=== PATIENT | female | born 1970 | race Caucasian/White ===

== ENCOUNTER 2017-07-15 19:21 | Emergency (ER) | payer SELFPAY ==
[2017-07-15] MEDS ORDERED: Lidocaine 2% Viscous Solution 15 ML Cup PO ONE (19:38)
[2017-07-15] MEDS ORDERED: Benzocaine 20% Topical Spray UD MUCMEM ONE (19:38)
--- NOTE | 2017-07-15 19:38 | EDM.PDOC ---
ED HPI GENERAL MEDICAL PROBLEM - General Stated Complaint: MOUTH/TOOTH PAIN Time Seen by Provider: 07/15/17 19:34 Source of Information: Reports: Patient, Family History Limitations: Reports: No Limitations - History of Present Illness INITIAL COMMENTS - FREE TEXT/NARRATIVE: HISTORY AND PHYSICAL: []46-year-old female presenting with tooth pain History of Present Illness: []Just moved to this area does not have a dentist that this pain for a couple days Review of Systems: As per history of present illness and below otherwise all systems reviewed and negative. Past medical history: As per history of present illness and as reviewed below otherwise noncontributory. Surgical history: As per history of present illness and as reviewed below otherwise noncontributory. Social history: No reported history of drug or alcohol abuse. Family history: As per history of present illness and as reviewed below otherwise noncontributory. Physical exam: Alert and oriented female answering questions appropriately rating her pain as 6 /10. Reports allergy to Cipro. He can full sentences without shortness of breath HEENT: Atraumatic, normocehpalic, pupils reactive, negative for conjunctival pallor or scleral icterus, mucous membranes moist, throat clear, neck supple, nontender, trachea midline. In the front of her mouth that is not tooth above tooth 7 is erythema and edema starting to have white pustular material present. Tooth #7 is milton looking. Lungs: Clear to auscultation, breath sounds equal bilaterally, chest non tender. Heart: S1S2, regular, negative for clicks, rubs, or JVD. Abdomen: Soft, nondistended, nontender. Negative for masses or hepatossplenmegaly. Negative for costovertebral tenderness. Pelvis: Stable nontender. Genitourinary: Deferred. Rectal: Deferred Extremities: Atraumatic, negative for cords or calf pain. Neurovascular unremarkable. Neuro: Awake, alert, oriented. Cranial nerves II through XII unremarkable. Cerebellum unremarkable. Motor and sensory unremarkable throughout. Exam nonfocal. Discussed her dental abscess with her and her voice understanding of her discharge instructions Diagnostics: [] Therapeutics: [Dental balls] Impression: [Dental abscess] Plan: []Discharged to home Cephalexin 500 mg 3 times a day 10 days Follow up with the dentist or resolution of this problem Definitive disposition and diagnosis as appropriate pending reevaluation and review of above. Onset: Gradual Duration: Day(s): (2) Location: Reports: Face Quality: Reports: Stabbing, Throbbing Severity: Moderate Improves with: Reports: None Worsens with: Reports: None - Related Data Allergies Allergy/AdvReac Type Severity Reaction Status Date / Time ciprofloxacin [From Cipro] Allergy Vomiting Verified 07/15/17 19:35 Home Meds: Home Meds Cephalexin 500 mg PO TID #30 capsule 07/15/17 [Rx] ED ROS GENERAL - Review of Systems Review Of Systems: ROS reveals no pertinent complaints other than HPI. ED EXAM, GENERAL - Physical Exam Exam: See Below (See dictation) Course - Vital Signs Last Recorded V/S: Last Vital Signs Temp 36.9 C 07/15/17 19:32 Pulse 105 H 07/15/17 19:32 Resp 19 07/15/17 19:32 BP 156/108 H 07/15/17 19:32 Pulse Ox 95 07/15/17 19:32 - Orders/Labs/Meds Orders: Active Orders 24 hr Category Date Time Status Benzocaine [Hurricaine One 20%] Med 07/15/17 19:38 Once 2 each MUCMEM ONETIME ONE Lidocaine 2% [Xylocaine 2% Viscous] Med 07/15/17 19:38 Once 15 ml PO ONETIME ONE Departure - Departure Time of Disposition: 19:39 Disposition: Home, Self-Care 01 Condition: Good Clinical Impression: Dental abscess - Discharge Information Prescriptions: Cephalexin 500 mg PO TID #30 capsule Referrals: PCP,None [Primary Care Provider] - - My Orders Last 24 Hours: My Active Orders 07/15/17 19:38 Benzocaine [Hurricaine One 20%] 2 each MUCMEM ONETIME ONE Lidocaine 2% [Xylocaine 2% Viscous] 15 ml PO ONETIME ONE - Assessment/Plan Last 24 Hours: My Active Orders 07/15/17 19:38 Benzocaine [Hurricaine One 20%] 2 each MUCMEM ONETIME ONE Lidocaine 2% [Xylocaine 2% Viscous] 15 ml PO ONETIME ONE
== END 2017-07-15 19:52 | disposition home or self-care (01) ==
LOC: MW.ED 19:21
DX: K04.7 Periapical abscess without sinus (principal); Z88.1 Allergy status to other antibiotic agents
CPT/HCPCS: 99282; A9270

== ENCOUNTER 2019-10-03 17:11 | Emergency (ER) | payer SELFPAY ==
[2019-10-03] MEDS ORDERED: Sodium Chloride 0.9% 1,000 ML IV ONE (17:18)
[2019-10-03] MEDS ORDERED: Sodium Chloride 0.9% 10 ML Syringe FLUSH PRN (17:18)
[2019-10-03] MEDS ORDERED: Sodium Chloride 0.9% 2.5 ML Syringe FLUSH PRN (17:18)
--- NOTE | 2019-10-03 17:20 | EDM.PDOC ---
ED HPI GENERAL MEDICAL PROBLEM - General Chief Complaint: Chest Pain Stated Complaint: SOB Time Seen by Provider: 10/03/19 17:19 Source of Information: Reports: Patient History Limitations: Reports: No Limitations - History of Present Illness INITIAL COMMENTS - FREE TEXT/NARRATIVE: HISTORY AND PHYSICAL: History of present illness: Patient is a 48-year-old female presents to the ED With complaint of chest pain and shortness of breath. She states she has been having a heavy feeling in her left arm and burping all day. She reports she started feeling short of breath a few hours and states she thinks it's because she "got herself worked up." She reports chest pain started approximately 1 hours ago and is in the middle and right side of her chest and is worse with deep breaths. She denies fevers, chills, vomiting, diarrhea, abdominal pain, cough, jaw pain. She reports feeling nauseous. Review of systems: As per history of present illness and below otherwise all systems reviewed and negative. Past medical history: As per history of present illness and as reviewed below otherwise noncontributory. Surgical history: As per history of present illness and as reviewed below otherwise noncontributory. Social history: No reported history of drug or alcohol abuse. Family history: As per history of present illness and as reviewed below otherwise noncontributory. Physical exam: General: Patient sitting comfortably in no acute distress and nontoxic appearing HEENT: Atraumatic, normocephalic, pupils reactive, negative for conjunctival pallor or scleral icterus, mucous membranes moist, throat clear, neck supple, nontender, trachea midline. No meningeal signs. Lungs: Clear to auscultation, breath sounds equal bilaterally, chest nontender. Heart: S1S2, regular, negative for clicks, rubs, or overt murmur. Abdomen: Soft, nondistended, nontender. Negative for masses or hepatosplenomegaly. Negative for costovertebral tenderness. No rigidity, rebound , guarding. Pelvis: Stable nontender. Genitourinary: Deferred. Rectal: Deferred. Extremities: Atraumatic, negative for cords or calf pain. Neurovascular unremarkable. Neuro: Awake, alert, oriented. Cranial nerves II through XII unremarkable. Cerebellum unremarkable. Motor and sensory unremarkable throughout. Exam nonfocal. Notes: EKG shows NSR, no STEMI. 1800 - patient reports she no longer has pain in her left arm and pain in her chest has improved. 1899 - patient states her mom recently and she is feeling very anxious and believes her symptoms are due to this. She states she will get flutters in her chest and feel short of breath. Patient is tearful as she is talking to me. 1999 - patient reports feeling significantly better after ativan and denies any symptoms at this time. 2 hour troponin is negative. I offered patient admission for observation and serial troponins which she declined. Diagnostics: CBC, CMP, troponin, EKG, CXR Therapeutics: ASA 324mg chewed 1mg Ativan PO Prescriptions: none Impression: Atypical chest pain, anxiety Plan: Follow up with primary care provider Return to ED as needed as discussed Definitive disposition and diagnosis as appropriate pending reevaluation and review of above. - Related Data Allergies Allergy/AdvReac Type Severity Reaction Status Date / Time adhesive Allergy Blisters Verified 10/03/19 17:16 ciprofloxacin [From Cipro] Allergy Vomiting Verified 10/03/19 17:16 morphine Allergy Vomiting Verified 10/03/19 17:16 Home Meds: Home Meds . [No Known Home Meds] 10/03/19 [History] Past Medical History HEENT History: Reports: None Gastrointestinal History: Reports: None [employer] History: Reports: Musculoskeletal History: Reports: None - Infectious Disease History Infectious Disease History: Reports: Chicken Pox - Past Surgical History HEENT Surgical History: Reports: Adenoidectomy, Tonsillectomy GI Surgical History: Reports: Appendectomy, Cholecystectomy Female Surgical History: Reports: Hysterectomy Musculoskeletal Surgical History: Reports: Other (See Below) Other Musculoskeletal Surgeries/Procedures:: left knee surgery Social & Family History - Family History Family Medical History: Noncontributory - Caffeine Use Caffeine Use: Reports: None ED ROS GENERAL - Review of Systems Review Of Systems: Comprehensive ROS is negative, except as noted in HPI. ED EXAM, GENERAL - Physical Exam Exam: See Below (see dictation) Course - Vital Signs Last Recorded V/S: Last Vital Signs Temp 95.5 F L 10/03/19 17:16 Pulse 97 10/03/19 17:16 Resp 17 10/03/19 17:16 BP 181/90 H 10/03/19 17:16 Pulse Ox 97 10/03/19 17:16 - Orders/Labs/Meds Orders: Active Orders 24 hr Category Date Time Status Cardiac Monitoring [RC] . DIRECTED Care 10/03/19 17:18 Active EKG Documentation Completion [RC] STAT Care 10/03/19 17:18 Active Sodium Chloride 0.9% [Saline Flush] Med 10/03/19 17:18 Active 10 ml FLUSH ASDIRECTED PRN Sodium Chloride 0.9% [Saline Flush] Med 10/03/19 17:18 Active 2.5 ml FLUSH ASDIRECTED PRN Saline Lock Insert [OM.PC] Stat Oth 10/03/19 17:18 Ordered Medication Orders Sodium Chloride (Saline Flush) 10 ml FLUSH ASDIRECTED PRN PRN Reason: Keep Vein Open Sodium Chloride (Saline Flush) 2.5 ml FLUSH ASDIRECTED PRN PRN Reason: Keep Vein Open Labs: Laboratory Tests 10/03/19 10/03/19 10/03/19 Range/Units 17:22 17:22 17:22 WBC 11.44 H (4.0-11.0) K/uL RBC 4.92 (4.30-5.90) M/uL Hgb 14.1 (12.0-16.0) g/dL Hct 42.7 (36.0-46.0) % MCV 86.8 (80.0-98.0) fL MCH 28.7 (27.0-32.0) pg MCHC 33.0 (31.0-37.0) g/dL RDW Std Deviation 42.1 (28.0-62.0) fl RDW Coeff of [place] 13 (11.0-15.0) % Plt Count 287 (150-400) K/uL MPV 9.90 (7.40-12.00) fL Neut % (Auto) 61.3 (48.0-80.0) % Lymph % (Auto) 28.7 (16.0-40.0) % [place] % (Auto) 8.2 (0.0-15.0) % Eos % (Auto) 1.6 (0.0-7.0) % Baso % (Auto) 0.2 (0.0-1.5) % Neut # (Auto) 7.0 H (1.4-5.7) K/uL Lymph # (Auto) 3.3 H (0.6-2.4) K/uL [place] # (Auto) 0.9 H (0.0-0.8) K/uL Eos # (Auto) 0.2 (0.0-0.7) K/uL Baso # (Auto) 0.0 (0.0-0.1) K/uL Nucleated RBC % 0.0 /100WBC Nucleated RBCs # 0 K/uL INR 0.94 Sodium 140 (136-145) mmol/L Potassium 3.8 (3.5-5.1) mmol/L Chloride 102 (98-107) mmol/L Carbon Dioxide 26.8 (21.0-32.0) mmol/L BUN 13 (7.0-18.0) mg/dL Creatinine 0.9 (0.6-1.0) mg/dL Est Cr Clr Drug Dosing 61.77 mL/min Estimated GFR (MDRD) > 60.0 ml/min Glucose 119 H (74-106) mg/dL Calcium 9.8 (8.5-10.1) mg/dL Total Bilirubin 0.3 (0.2-1.0) mg/dL AST 23 (15-37) IU/L ALT 51 (14-63) IU/L Alkaline Phosphatase 81 (46-116) U/L Troponin I < 0.050 (0.000-0.056) ng/mL Total Protein 7.1 (6.4-8.2) g/dL Albumin 4.1 (3.4-5.0) g/dL Globulin 3.0 (2.6-4.0) g/dL Albumin/Globulin Ratio 1.4 (0.9-1.6) 10/03/19 Range/Units 19:21 WBC (4.0-11.0) K/uL RBC (4.30-5.90) M/uL Hgb (12.0-16.0) g/dL Hct (36.0-46.0) % MCV (80.0-98.0) fL MCH (27.0-32.0) pg MCHC (31.0-37.0) g/dL RDW Std Deviation (28.0-62.0) fl RDW Coeff of [place] (11.0-15.0) % Plt Count (150-400) K/uL MPV (7.40-12.00) fL Neut % (Auto) (48.0-80.0) % Lymph % (Auto) (16.0-40.0) % [place] % (Auto) (0.0-15.0) % Eos % (Auto) (0.0-7.0) % Baso % (Auto) (0.0-1.5) % Neut # (Auto) (1.4-5.7) K/uL Lymph # (Auto) (0.6-2.4) K/uL [place] # (Auto) (0.0-0.8) K/uL Eos # (Auto) (0.0-0.7) K/uL Baso # (Auto) (0.0-0.1) K/uL Nucleated RBC % /100WBC Nucleated RBCs # K/uL INR Sodium (136-145) mmol/L Potassium (3.5-5.1) mmol/L Chloride (98-107) mmol/L Carbon Dioxide (21.0-32.0) mmol/L BUN (7.0-18.0) mg/dL Creatinine (0.6-1.0) mg/dL Est Cr Clr Drug Dosing mL/min Estimated GFR (MDRD) ml/min Glucose (74-106) mg/dL Calcium (8.5-10.1) mg/dL Total Bilirubin (0.2-1.0) mg/dL AST (15-37) IU/L ALT (14-63) IU/L Alkaline Phosphatase (46-116) U/L Troponin I < 0.050 (0.000-0.056) ng/mL Total Protein (6.4-8.2) g/dL Albumin (3.4-5.0) g/dL Globulin (2.6-4.0) g/dL Albumin/Globulin Ratio (0.9-1.6) Meds: Medications Generic Name Dose Route Start Last Admin Trade Name Freq PRN Reason Stop Dose Admin Sodium Chloride 10 ml 10/03/19 17:18 Saline Flush FLUSH ASDIRECTED PRN Keep Vein Open Sodium Chloride 2.5 ml 10/03/19 17:18 Saline Flush FLUSH ASDIRECTED PRN Keep Vein Open Discontinued Medications Generic Name Dose Route Start Last Admin Trade Name Freq PRN Reason Stop Dose Admin Aspirin 324 mg 10/03/19 17:27 10/03/19 17:42 Aspirin PO 10/03/19 17:28 324 mg ONETIME ONE Administration Sodium Chloride 1,000 mls @ 999 mls/hr 10/03/19 17:18 10/03/19 17:26 Normal Saline IV 10/03/19 18:18 999 mls/hr BOLUS ONE Administration Lorazepam 1 mg 10/03/19 18:53 10/03/19 19:00 Ativan IVPUSH 10/03/19 18:54 1 mg ONETIME ONE Administration Departure - Departure Time of Disposition: 19:58 Disposition: Home, Self-Care 01 Condition: Good Clinical Impression: Atypical chest pain, Anxiety Referrals: PCP,None [Primary Care Provider] - Forms: ED Department Discharge Additional Instructions: The following information is given to patients seen in the emergency department who are being discharged to home. This information is to outline your options for follow-up care. We provide all patients seen in our emergency department with a follow-up referral. The need for follow-up, as well as the timing and circumstances, are variable depending upon the specifics of your emergency department visit. If you don't have a primary care physician on staff, we will provide you with a referral. We always advise you to contact your personal physician following an emergency department visit to inform them of the circumstance of the visit and for follow-up with them and/or the need for any referrals to a consulting specialist. The emergency department will also refer you to a specialist when appropriate. This referral assures that you have the opportunity for follow-up care with a specialist. All of these measure are taken in an effort to provide you with optimal care, which includes your follow-up. Under all circumstances we always encourage you to contact your private physician who remains a resource for coordinating your care. When calling for follow-up care, please make the office aware that this follow-up is from your recent emergency room visit. If for any reason you are refused follow-up, please contact the [facility] Emergency Department at and asked to speak to the emergency department charge nurse. [facility] Primary [facility] [address] [place] [id number] [facility] [address] [place] [address] Follow up with primary care provider Return to ED as needed as discussed Sepsis Event Note - Evaluation Sepsis Screening Result: No Definite Risk - Focused Exam Vital Signs: Vital Signs Temp Pulse Resp BP Pulse Ox 10/03/19 17:16 95.5 F L 97 17 181/90 H 97 Date Exam was Performed: 10/03/19 Time Exam was Performed: 19:56 - My Orders Last 24 Hours: My Active Orders 10/03/19 17:18 Cardiac Monitoring [RC] . DIRECTED EKG Documentation Completion [RC] STAT Sodium Chloride 0.9% [Saline Flush] 10 ml FLUSH ASDIRECTED PRN Sodium Chloride 0.9% [Saline Flush] 2.5 ml FLUSH ASDIRECTED PRN Saline Lock Insert [OM.PC] Stat - Assessment/Plan Last 24 Hours: My Active Orders 10/03/19 17:18 Cardiac Monitoring [RC] . DIRECTED EKG Documentation Completion [RC] STAT Sodium Chloride 0.9% [Saline Flush] 10 ml FLUSH ASDIRECTED PRN Sodium Chloride 0.9% [Saline Flush] 2.5 ml FLUSH ASDIRECTED PRN Saline Lock Insert [OM.PC] Stat
[2019-10-03] MEDS ORDERED: Aspirin 81 MG Tab.Chew PO ONE (17:27)
--- NOTE | 2019-10-03 17:57 | CR ---
Chest: Portable view of the chest was obtained. Comparison: No prior chest imaging is available. Heart size and mediastinum are within normal limits. Lungs are clear with no acute parenchymal change. Old healed bilateral rib fractures are noted. Slight scoliosis is noted within the spine. Impression: 1. Nothing acute is appreciated on portable chest x-ray. Diagnostic code #2 This report was dictated in MDT
[2019-10-03 17:58] LABS: BLOOD UREA NITROGEN,BUN 13 mg/dL (7.0-18.0); CARBON DIOXIDE,CO2 26.8 mmol/L (21.0-32.0); CHLORIDE,CL 102 mmol/L (98-107); GLUCOSE RANDOM 119 mg/dL (74-106); POTASSIUM,K 3.8 mmol/L (3.5-5.1); SODIUM,NA 140 mmol/L (136-145)
[2019-10-03] MEDS ORDERED: LORazepam 2 MG/ML SDV IVPUSH ONE (18:53)
== END 2019-10-03 20:04 | disposition home or self-care (01) ==
LOC: MW.ED 17:11
DX: F41.9 Anxiety disorder, unspecified (principal); Z88.5 Allergy status to narcotic agent; Z88.1 Allergy status to other antibiotic agents; Z91.048 Other nonmedicinal substance allergy status
CPT/HCPCS: 36415; 71045; 80053; 84484; 85025; 85610; 93005; 96374; 99285; A9270; J2060; J7030; 99283

== ENCOUNTER 2020-03-20 09:17 | Observation (INO) | payer SELFPAY ==
--- NOTE | 2020-03-20 10:04 | EDM.PDOC ---
ED HPI GENERAL MEDICAL PROBLEM - General Chief Complaint: Respiratory Problem Stated Complaint: SOB COUGHING Time Seen by Provider: 03/20/20 09:22 Source of Information: Reports: Patient History Limitations: Reports: No Limitations - History of Present Illness INITIAL COMMENTS - FREE TEXT/NARRATIVE: HISTORY AND PHYSICAL: History of present illness: Patient is a 49-year-old female who presents to the emergency room with complaints of shortness of breath, chest pain and cough x24 hours. She states she has had general fatigue, body aches, nausea, vomiting and diarrhea over the past 3 to 4 days. She reports multiple family members recently tested positive for COVID-19 and she is "pretty sure I have it as well". She states the reason she came in today as she had increased shortness of breath and generalized chest pain. The chest pain and shortness of breath are mild and constant. Patient denies any fever, chills, headache, change in vision, syncope or near syncope. Denies any neck stiffness/pain, back pain, abdominal pain, constipation or dysuria. Has not noted any blood in urine or stool. Denies any chance of , hysterectomy. Review of systems: As per history of present illness and below otherwise all systems reviewed and negative. Past medical history: As per history of present illness and as reviewed below otherwise noncontributory. Surgical history: As per history of present illness and as reviewed below otherwise noncontributory. Social history: See social history for further information Family history: As per history of present illness and as reviewed below otherwise noncontributory. Physical exam: General: Well developed and well nourished 49-year-old female. Alert and orientated x 3. Nontoxic in appearance and in no acute distress. Vital signs are stable and have been reviewed by me. Nursing notes were reviewed. HEENT: Atraumatic, normocephalic, pupils equal and reactive bilaterally, negative for conjunctival pallor or scleral icterus, mucous membranes dry/tacky, TMs normal bilaterally, throat clear, neck supple, nontender, trachea midline. No drooling or trismus noted. No meningeal signs. No hot potato voice noted. Lungs: Diminished to auscultation, breath sounds equal bilaterally, chest nontender. Normal work of breathing, no accessory muscles used. Heart: S1S2, regular rate and rhythm without overt murmur Abdomen: Soft, nondistended, nontender. Negative for masses or hepatosplenomegaly. Negative for costovertebral tenderness. Skin: Intact, warm, dry. No lesions or rashes noted. Hematologic: No petechiae or purpra. Mucosa appropriate color and normal nail bed color and refill. Extremities: Atraumatic, moves all extremities per self without difficulty or deficits, negative for cords or calf pain. Neurovascular unremarkable. Neuro: Awake, alert, oriented. Cranial nerves II through XII unremarkable. Cerebellum unremarkable. Motor and sensory unremarkable throughout. Exam nonfocal. Psychiatric: Mood and affect are appropriate. Normal thought process. Answering questions appropriately. Notes: Patient does appear clinically dehydrated her mouth is tacky/dry. We will give her a liter of fluids. Lab work is unremarkable with the exception that her D- dimer is elevated, will get a CTA of her chest to rule out PE. Chest x-ray was unremarkable. Positive COVID-19 screening. Her vital signs remained stable she should be appropriate for discharge if her CTA is within normal limits. CT of the chest shows no findings of pulmonary embolism. There is moderate multifocal groundglass opacification. The findings are consistent with COVID related pneumonia. No pleural effusion or pneumothorax. Prominent mediastinal lymph nodes likely reactive. Hepatic steatosis. I have talked with the patient about today's findings, in addition to providing specific details for plan of care. Patient states she does not want to be discharged home as she is taking care of her and other family members who also have COVID-19, states cannot think I would do well at home. She then becomes tearful stating her mother recently of COVID-19 and she does not feel comfortable without having supervision from a healthcare provider. Her oxygen saturation has been fluctuating between 92% 94% on room air. I do feel it is appropriate to keep her for observation. I spoke with Dr Peters, who is agr eeable to keeping her for further care and management. Diagnostics: CBC, CMP, Troponin, EKG, CXR, Coronavirus Therapeutics: IV fluids, Dexamethasone, Rocephin, Azithromycin Impression: COVID-19 related pneumonia Plan: Observation admission to Med/Surg with telemetry Definitive disposition and diagnosis as appropriate pending reevaluation and review of above. 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: Musculoskeletal History: Reports: None - Infectious Disease History Infectious Disease History: Reports: Chicken Pox - Past Surgical History HEENT Surgical History: Reports: Adenoidectomy, Tonsillectomy GI Surgical History: Reports: Appendectomy, Cholecystectomy Female Surgical History: Reports: Hysterectomy Musculoskeletal Surgical History: Reports: Other (See Below) Other Musculoskeletal Surgeries/Procedures:: left knee surgery Social & Family History - Family History Family Medical History: No Pertinent Family History - Caffeine Use Caffeine Use: Reports: None ED ROS GENERAL - Review of Systems Review Of Systems: Comprehensive ROS is negative, except as noted in HPI. ED EXAM, GENERAL - Physical Exam Exam: See Below (See dictation) Course - Vital Signs Last Recorded V/S: Last Vital Signs Temp 97.6 F 03/20/20 09:35 Pulse 95 03/20/20 11:00 Resp 18 03/20/20 11:00 BP 116/63 03/20/20 11:00 Pulse Ox 96 03/20/20 11:00 - Orders/Labs/Meds Orders: Active Orders 24 hr Category Date Time Status Admission Status [Patient Status] [ADT] Stat ADT 03/20/20 13:40 Ordered EKG Documentation Completion [RC] STAT Care 03/20/20 10:09 Active CORONAVIRUS COVID-19 PCR PHL Stat Lab 03/20/20 10:45 Received cefTRIAXone [Rocephin in Dextrose,Iso-Osm 1 GM/50 ML] 1 Med 03/20/20 13:42 Ordered gm Premix Bag 1 bag IV ONETIME Medication Orders Ceftriaxone Sodium/Dextrose 1 (gm/ Premix) 50 mls @ 100 mls/hr IV ONETIME ONE Stop: 03/20/20 14:11 Labs: Laboratory Tests 03/20/20 03/20/20 03/20/20 Range/Units 10:45 10:45 10:45 WBC 5.32 (4.0-11.0) K/uL RBC 5.03 (4.30-5.90) M/uL Hgb 14.7 (12.0-16.0) g/dL Hct 43.6 (36.0-46.0) % MCV 86.7 (80.0-98.0) fL MCH 29.2 (27.0-32.0) pg MCHC 33.7 (31.0-37.0) g/dL RDW Std Deviation 43.0 (28.0-62.0) fl RDW Coeff of Eugene 14 (11.0-15.0) % Plt Count 162 (150-400) K/uL MPV 10.50 (7.40-12.00) fL Neut % (Auto) 64.5 (48.0-80.0) % Lymph % (Auto) 22.0 (16.0-40.0) % Brooks % (Auto) 13.3 (0.0-15.0) % Eos % (Auto) 0.0 (0.0-7.0) % Baso % (Auto) 0.2 (0.0-1.5) % Neut # (Auto) 3.4 (1.4-5.7) K/uL Lymph # (Auto) 1.2 (0.6-2.4) K/uL Brooks # (Auto) 0.7 (0.0-0.8) K/uL Eos # (Auto) 0.0 (0.0-0.7) K/uL Baso # (Auto) 0.0 (0.0-0.1) K/uL Nucleated RBC % 0.0 /100WBC Nucleated RBCs # 0 K/uL D-Dimer, Quantitative 0.62 H (0.0-0.50) mg/L FEU Sodium 133 L (136-145) mmol/L Potassium 3.4 L (3.5-5.1) mmol/L Chloride 98 (98-107) mmol/L Carbon Dioxide 24.8 (21.0-32.0) mmol/L BUN 9 (7.0-18.0) mg/dL Creatinine 0.8 (0.6-1.0) mg/dL Est Cr Clr Drug Dosing 68.76 mL/min Estimated GFR (MDRD) > 60.0 ml/min Glucose 109 H (74-106) mg/dL Calcium 8.5 (8.5-10.1) mg/dL Total Bilirubin 0.4 (0.2-1.0) mg/dL AST 34 (15-37) IU/L ALT 39 (14-63) IU/L Alkaline Phosphatase 64 (46-116) U/L Troponin I < 0.050 (0.000-0.056) ng/mL Total Protein 7.5 (6.4-8.2) g/dL Albumin 3.8 (3.4-5.0) g/dL Globulin 3.7 (2.6-4.0) g/dL Albumin/Globulin Ratio 1.0 (0.9-1.6) SARS CoV-2 RNA Rapid RICHARD (NEGATIVE) 03/20/20 Range/Units 10:45 WBC (4.0-11.0) K/uL RBC (4.30-5.90) M/uL Hgb (12.0-16.0) g/dL Hct (36.0-46.0) % MCV (80.0-98.0) fL MCH (27.0-32.0) pg MCHC (31.0-37.0) g/dL RDW Std Deviation (28.0-62.0) fl RDW Coeff of Eugene (11.0-15.0) % Plt Count (150-400) K/uL MPV (7.40-12.00) fL Neut % (Auto) (48.0-80.0) % Lymph % (Auto) (16.0-40.0) % Brooks % (Auto) (0.0-15.0) % Eos % (Auto) (0.0-7.0) % Baso % (Auto) (0.0-1.5) % Neut # (Auto) (1.4-5.7) K/uL Lymph # (Auto) (0.6-2.4) K/uL Brooks # (Auto) (0.0-0.8) K/uL Eos # (Auto) (0.0-0.7) K/uL Baso # (Auto) (0.0-0.1) K/uL Nucleated RBC % /100WBC Nucleated RBCs # K/uL D-Dimer, Quantitative (0.0-0.50) mg/L FEU Sodium (136-145) mmol/L Potassium (3.5-5.1) mmol/L Chloride (98-107) mmol/L Carbon Dioxide (21.0-32.0) mmol/L BUN (7.0-18.0) mg/dL Creatinine (0.6-1.0) mg/dL Est Cr Clr Drug Dosing mL/min Estimated GFR (MDRD) ml/min Glucose (74-106) mg/dL Calcium (8.5-10.1) mg/dL Total Bilirubin (0.2-1.0) mg/dL AST (15-37) IU/L ALT (14-63) IU/L Alkaline Phosphatase (46-116) U/L Troponin I (0.000-0.056) ng/mL Total Protein (6.4-8.2) g/dL Albumin (3.4-5.0) g/dL Globulin (2.6-4.0) g/dL Albumin/Globulin Ratio (0.9-1.6) SARS CoV-2 RNA Rapid RICHARD POSITIVE H (NEGATIVE) Meds: Medications Generic Name Dose Route Start Last Admin Trade Name Freq PRN Reason Stop Dose Admin Ceftriaxone Sodium/Dextrose 1 50 mls @ 100 mls/hr 03/20/20 13:42 gm/ Premix IV 03/20/20 14:11 ONETIME ONE Discontinued Medications Generic Name Dose Route Start Last Admin Trade Name Freq PRN Reason Stop Dose Admin Azithromycin 500 mg 03/20/20 13:42 Zithromax PO 03/20/20 13:43 NOW STA Dexamethasone 8 mg 03/20/20 10:09 03/20/20 10:37 Dexamethasone PO 03/20/20 10:10 8 mg ONETIME ONE Administration Sodium Chloride 1,000 mls @ 999 mls/hr 03/20/20 10:09 03/20/20 10:47 Normal Saline IV 03/20/20 11:09 999 mls/hr .Bolus ONE Administration Iopamidol 100 ml 03/20/20 13:17 03/20/20 13:17 Isovue Multipack-370 (76%) IVPUSH 03/20/20 13:18 100 ml ONETIME ONE Administration Departure - Departure Time of Disposition: 13:58 Disposition: Refer to Observation Clinical Impression: Pneumonia due to COVID-19 virus - Discharge Information Referrals: Shi Vigil, CAFE ATTENDANT [Primary Care Provider] - Forms: ED Department Discharge Sepsis Event Note (ED) - Focused Exam Vital Signs: Vital Signs Temp Pulse Resp BP Pulse Ox 03/20/20 11:00 95 18 116/63 96 03/20/20 09:35 97.6 F 108 H 20 120/89 94 L - My Orders Last 24 Hours: My Active Orders 03/20/20 10:09 EKG Documentation Completion [RC] STAT 03/20/20 10:45 CORONAVIRUS COVID-19 PCR PHL Stat 03/20/20 13:40 Admission Status [Patient Status] [ADT] Stat 03/20/20 13:42 cefTRIAXone [Rocephin in Dextrose,Iso-Osm 1 GM/50 ML] 1 gm Premix Bag 1 bag IV ONETIME - Assessment/Plan Last 24 Hours: My Active Orders 03/20/20 10:09 EKG Documentation Completion [RC] STAT 03/20/20 10:45 CORONAVIRUS COVID-19 PCR PHL Stat 03/20/20 13:40 Admission Status [Patient Status] [ADT] Stat 03/20/20 13:42 cefTRIAXone [Rocephin in Dextrose,Iso-Osm 1 GM/50 ML] 1 gm Premix Bag 1 bag IV ONETIME
[2020-03-20] MEDS ORDERED: Sodium Chloride 0.9% 1,000 ML IV ONE (10:09)
[2020-03-20] MEDS ORDERED: Dexamethasone 4 MG Tab PO ONE (10:09)
--- NOTE | 2020-03-20 10:38 | CR ---
INDICATION: Chest pain and dyspnea COMPARISON: October 03, 2019 TECHNIQUE: PA and lateral views of the chest were acquired FINDINGS: TUBES AND LINES: None. HEART AND MEDIASTINUM: The heart size is normal. The mediastinal contour appears normal for patient age. LUNGS AND PLEURAL SPACES: The lungs appear normal.The pleural spaces are unremarkable. OSSEOUS STRUCTURES: Nonacute left rib fractures IMPRESSION: No evidence of active pulmonary disease. Dictated by Terry Barreto MD @ Mar 20 2020 10:36AM Signed by Dr. Terry Barreto @ Mar 20 2020 10:36AM
--- NOTE | 2020-03-20 10:43 | PCM.SN.2 ---
- Free Text/Narrative Note: 12-Lead ECG Interpretation Acquired: 10:28 AM Rhythm: Sinus tachycardia Rate: 115 bpm Parker: Normal Intervals: Mildly prolonged QT interval at 487 ms Ectopy: None RV Strain: No obvious RV strain pattern. ST Segments/T-Waves: No notable changes. Isolated Q-wave in lead III. Mild nondiagnostic ST depression in leads V2 and III, possibly rate related. Interpretation: No STEMI
[2020-03-20 11:23] LABS: BLOOD UREA NITROGEN,BUN 9 mg/dL (7.0-18.0); CARBON DIOXIDE,CO2 24.8 mmol/L (21.0-32.0); CHLORIDE,CL 98 mmol/L (98-107); GLUCOSE RANDOM 109 mg/dL (74-106); POTASSIUM,K 3.4 mmol/L (3.5-5.1); SODIUM,NA 133 mmol/L (136-145)
[2020-03-20] MEDS ORDERED: Albuterol/Ipratropium 4 GM Inhalation Spray INH PRN (12:00)
[2020-03-20] MEDS ORDERED: Iopamidol 755 MG/ML 500 ML Multipack Bottle IVPUSH ONE (13:17)
--- NOTE | 2020-03-20 13:30 | CT ---
INDICATION: COVID 19 pneumonia with elevated D-dimer and dyspnea. Exclude pulmonary embolus COMPARISON: None TECHNIQUE: : CT examination of the chest was performed with the uneventful intravenous administration of 100 cc of Isovue 370 while thin axial sections were obtained from above the apices of the lungs to the lung bases. Please note that all CT scans at this facility use dose modulation, iterative reconstruction, and/or weight-based dosing when appropriate to reduce radiation dose to as low as reasonably achievable. FINDINGS: : HEART and MEDIASTINUM: The heart size is normal. Prominent mediastinal lymph nodes likely reactive. No significant pericardial fluid PULMONARY ARTERIAL CIRCULATION: There is no visible intraluminal filling defect to suggest pulmonary embolus. LUNGS: Multifocal ground-glass opacification in a roughly bilateral and symmetric distribution, moderate. The findings are likely related to COVID pneumonia. PLEURAL SPACES: There is no pleural effusion, pneumothorax or pleural based mass. VISUALIZED UPPER ABDOMEN: Hepatic steatosis. Otherwise, the limited visualized upper abdominal structures appear normal. OSSEOUS STRUCTURES: Demineralization, degenerative changes and kyphosis. TUBES and LINES: None. IMPRESSION: 1. There is no finding of pulmonary embolus. 2. Moderate multifocal ground-glass opacification. The findings are consistent with COVID related pneumonia. No pleural effusion or pneumothorax. 3. Prominent mediastinal lymph nodes likely reactive. 4. Hepatic steatosis. Please note that all CT scans at this facility use dose modulation, iterative reconstruction, and/or weight-based dosing when appropriate to reduce radiation dose to as low as reasonably achievable. Dictated by Terry Barreto MD @ Mar 20 2020 1:22PM Signed by Dr. Terry Barreto @ Mar 20 2020 1:29PM
[2020-03-20] MEDS ORDERED: cefTRIAXone 1 GM in Premix Bag 1 BAG IV ONE (13:42)
[2020-03-20] MEDS ORDERED: Azithromycin 250 MG Tab PO STA (13:42)
[2020-03-20] MEDS ORDERED: Ketorolac 30 MG/ML SDV IVPUSH ONE (14:09)
[2020-03-20] MEDS ORDERED: Ketorolac 30 MG/ML SDV ONE (14:10)
--- NOTE | 2020-03-20 14:30 | PCM.HP.2 ---
H&P History of Present Illness - General Date of Service: 03/20/20 Admit Problem/Dx: Admission Diagnosis/Problem Admission Diagnosis/Problem Pneumonia Source of Information: Patient History Limitations: Reports: No Limitations - History of Present Illness Initial Comments - Free Text/Narative: 49-year-old female presents with SOB, chest pain, cough and fever for the past 5 days. She has a PMH of DM type II, depression and anxiety. Patient reports having multiple family members test positive for COVID-19 recently. Her cough is mostly dry but productive at times. She has also had headache, body aches, chills and diarrhea. She smokes 1 pack of cigarettes over 3 days, occasional alcohol use and denies any illicit drugs. Patient reports her mother recently from COVID-19. In the ER, CBC unremarkable, potassium level 3.4 and troponin was negative. CXR was unremarkable. COVID-19 test positive. D-dimer was elevated. CT chest angio was negative for PE but showed bilateral ground glass opacities. Patient was given 1 L IV NS bolus, IV Rocephin, azithromycin, dexamethasone and Toradol. Patient oxygen saturation noted to be between 92-95% on room air. Patient admitted for further evaluation and treatment. 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: Musculoskeletal History: Reports: None - Infectious Disease History Infectious Disease History: Reports: Chicken Pox - Past Surgical History HEENT Surgical History: Reports: Adenoidectomy, Tonsillectomy GI Surgical History: Reports: Appendectomy, Cholecystectomy Female Surgical History: Reports: Hysterectomy Musculoskeletal Surgical History: Reports: Other (See Below) Other Musculoskeletal Surgeries/Procedures:: left knee surgery Social & Family History - Family History Family Medical History: No Pertinent Family History - Caffeine Use Caffeine Use: Reports: None H&P Review of Systems - Review of Systems: Review Of Systems: Comprehensive ROS is negative, except as noted in HPI. Exam - Exam Exam: See Below - Vital Signs Vital Signs: Last Vital Signs Temp 36.4 C 03/20/20 09:35 Pulse 84 03/20/20 14:15 Resp 18 03/20/20 14:15 BP 129/67 03/20/20 14:15 Pulse Ox 93 L 03/20/20 14:15 Weight: 83.915 kg - Exam General: Alert, Oriented, Cooperative, Mild Distress HEENT: Conjunctiva Clear, EOMI, Hearing Intact, Pupils Equal, Pupils Reactive Neck: Supple, Trachea Midline Lungs: Normal Respiratory Effort, Other (rales in bases b/l) Cardiovascular: Regular Rate, Regular Rhythm GI/Abdominal Exam: Normal Bowel Sounds, Soft, Non-Tender, No Distention Extremities: Normal Inspection, No Pedal Edema Peripheral Pulses: 2+: Radial (L), Radial (R) Skin: Warm, Dry, Intact Neurological: Cranial Nerves Intact, Strength Equal Bilateral, Normal Speech, Normal Tone Neuro Extensive - Mental Status: Alert, Oriented x3, Normal Mood/Affect Psychiatric: Alert, Normal Affect, Normal Mood - Patient Data Lab Results Last 24 hrs: Laboratory Results - last 24 hr 03/20/20 03/20/20 03/20/20 Range/Units 10:45 10:45 10:45 WBC 5.32 (4.0-11.0) K/uL RBC 5.03 (4.30-5.90) M/uL Hgb 14.7 (12.0-16.0) g/dL Hct 43.6 (36.0-46.0) % MCV 86.7 (80.0-98.0) fL MCH 29.2 (27.0-32.0) pg MCHC 33.7 (31.0-37.0) g/dL RDW Std Deviation 43.0 (28.0-62.0) fl RDW Coeff of Eugene 14 (11.0-15.0) % Plt Count 162 (150-400) K/uL MPV 10.50 (7.40-12.00) fL Neut % (Auto) 64.5 (48.0-80.0) % Lymph % (Auto) 22.0 (16.0-40.0) % Gonzales % (Auto) 13.3 (0.0-15.0) % Eos % (Auto) 0.0 (0.0-7.0) % Baso % (Auto) 0.2 (0.0-1.5) % Neut # (Auto) 3.4 (1.4-5.7) K/uL Lymph # (Auto) 1.2 (0.6-2.4) K/uL Gonzales # (Auto) 0.7 (0.0-0.8) K/uL Eos # (Auto) 0.0 (0.0-0.7) K/uL Baso # (Auto) 0.0 (0.0-0.1) K/uL Nucleated RBC % 0.0 /100WBC Nucleated RBCs # 0 K/uL D-Dimer, Quantitative 0.62 H (0.0-0.50) mg/L FEU Sodium 133 L (136-145) mmol/L Potassium 3.4 L (3.5-5.1) mmol/L Chloride 98 (98-107) mmol/L Carbon Dioxide 24.8 (21.0-32.0) mmol/L BUN 9 (7.0-18.0) mg/dL Creatinine 0.8 (0.6-1.0) mg/dL Est Cr Clr Drug Dosing 68.76 mL/min Estimated GFR (MDRD) > 60.0 ml/min Glucose 109 H (74-106) mg/dL Calcium 8.5 (8.5-10.1) mg/dL Total Bilirubin 0.4 (0.2-1.0) mg/dL AST 34 (15-37) IU/L ALT 39 (14-63) IU/L Alkaline Phosphatase 64 (46-116) U/L Troponin I < 0.050 (0.000-0.056) ng/mL Total Protein 7.5 (6.4-8.2) g/dL Albumin 3.8 (3.4-5.0) g/dL Globulin 3.7 (2.6-4.0) g/dL Albumin/Globulin Ratio 1.0 (0.9-1.6) SARS CoV-2 RNA Rapid RICHARD (NEGATIVE) 03/20/20 Range/Units 10:45 WBC (4.0-11.0) K/uL RBC (4.30-5.90) M/uL Hgb (12.0-16.0) g/dL Hct (36.0-46.0) % MCV (80.0-98.0) fL MCH (27.0-32.0) pg MCHC (31.0-37.0) g/dL RDW Std Deviation (28.0-62.0) fl RDW Coeff of Eugene (11.0-15.0) % Plt Count (150-400) K/uL MPV (7.40-12.00) fL Neut % (Auto) (48.0-80.0) % Lymph % (Auto) (16.0-40.0) % Gonzales % (Auto) (0.0-15.0) % Eos % (Auto) (0.0-7.0) % Baso % (Auto) (0.0-1.5) % Neut # (Auto) (1.4-5.7) K/uL Lymph # (Auto) (0.6-2.4) K/uL Gonzales # (Auto) (0.0-0.8) K/uL Eos # (Auto) (0.0-0.7) K/uL Baso # (Auto) (0.0-0.1) K/uL Nucleated RBC % /100WBC Nucleated RBCs # K/uL D-Dimer, Quantitative (0.0-0.50) mg/L FEU Sodium (136-145) mmol/L Potassium (3.5-5.1) mmol/L Chloride (98-107) mmol/L Carbon Dioxide (21.0-32.0) mmol/L BUN (7.0-18.0) mg/dL Creatinine (0.6-1.0) mg/dL Est Cr Clr Drug Dosing mL/min Estimated GFR (MDRD) ml/min Glucose (74-106) mg/dL Calcium (8.5-10.1) mg/dL Total Bilirubin (0.2-1.0) mg/dL AST (15-37) IU/L ALT (14-63) IU/L Alkaline Phosphatase (46-116) U/L Troponin I (0.000-0.056) ng/mL Total Protein (6.4-8.2) g/dL Albumin (3.4-5.0) g/dL Globulin (2.6-4.0) g/dL Albumin/Globulin Ratio (0.9-1.6) SARS CoV-2 RNA Rapid RICHARD POSITIVE H (NEGATIVE) Result Diagrams: 03/20/20 10:45 03/20/20 10:45 Sepsis Event Note - Evaluation Sepsis Screening Result: No Definite Risk - Focused Exam Vital Signs: Vital Signs Temp Pulse Resp BP Pulse Ox 03/20/20 14:15 84 18 129/67 93 L 03/20/20 11:00 95 18 116/63 96 03/20/20 09:35 36.4 C 108 H 20 120/89 94 L - Problem List (1) Pneumonia due to COVID-19 virus SNOMED Code(s): 298782731873132931 ICD Code: U07.1 - COVID-19; J12.89 - OTHER VIRAL PNEUMONIA Status: Acute Current Visit: Yes (2) Hypokalemia SNOMED Code(s): 42607114 ICD Code: E87.6 - HYPOKALEMIA Status: Acute Current Visit: Yes (3) Diabetes mellitus SNOMED Code(s): 71099793 ICD Code: E11.9 - TYPE 2 DIABETES MELLITUS WITHOUT COMPLICATIONS Status: Acute Current Visit: Yes (4) Depression SNOMED Code(s): 09357368 ICD Code: F32.9 - MAJOR DEPRESSIVE DISORDER, SINGLE EPISODE, UNSPECIFIED Status: Acute Current Visit: Yes (5) Anxiety SNOMED Code(s): 56847858 ICD Code: F41.9 - ANXIETY DISORDER, UNSPECIFIED Status: Acute Current Visit: No Problem List Initiated/Reviewed/Updated: Yes Orders Last 24hrs: Active Orders 24 hr Category Date Time Status Admission Status [Patient Status] [ADT] Stat ADT 03/20/20 13:40 Active EKG Documentation Completion [RC] STAT Care 03/20/20 10:09 Active CORONAVIRUS COVID-19 PCR PHL Stat Lab 03/20/20 10:45 Received Assessment/Plan Comment:: Assessment and Plan: 1. COVID-19 pneumonia: - Admit to med/surg. Patient on telemetry. Supplemental oxygen PRN to maintain O2 sat > 94%, combivent q6h PRN, Rocephin and azithromycin. Encourage incentive spirometer use. Will start patient on Remdesivir and dexamethasone if O2 sat drops below 94%. - CT chest angio: negative for PE, bilateral ground-glass opacities. - CXR: unremarkable. 2. Hypokalemia, mild: - Will replete with PO KCl 40 mEq x 1. 3. Diabetes mellitus type II: - ADA Diet. Novolog SSI. Accuchecks TIDAC. 4. DVT prophylaxis: - Lovenox 40 mg subcut qd. 5. Past medical history of anxiety and depression: - Resume home medications.
[2020-03-20] MEDS ORDERED: Ondansetron 4 MG/2 ML SDV IVPUSH PRN (14:40)
[2020-03-20] MEDS ORDERED: 50% Dextrose in Water 50 ML Syringe IV PRN (14:44)
[2020-03-20] MEDS ORDERED: Glucagon,Human Recombinant 1 MG Vial IM PRN (14:44)
[2020-03-20] MEDS ORDERED: Potassium Chloride 20 MEQ Tab.ER PO ONE (14:44)
[2020-03-20] MEDS ORDERED: Enoxaparin 40 MG/0.4 ML Syringe SUBCUT SCH (14:45)
[2020-03-20] MEDS ORDERED: REMDESIVIR 200 MG in Sodium Chloride 0.9% 250 ML IV ONE ×2 (15:17→17:20)
[2020-03-20] MEDS ORDERED: Potassium Chloride 20 MEQ Tab.ER ONE (17:24)
[2020-03-20] MEDS ORDERED: FLU VACC QS2020-21(6MOS UP)/PF 60 MCG/0.5 ML SYRINGE IM ONE (17:30)
[2020-03-20] MEDS: Pantoprazole 40 MG Tab.CR PO SCH (17:31)
[2020-03-20] MEDS: Insulin Aspart 100 Units/ML 3 ML Pen SUBCUT SCH (17:37)
[2020-03-20] MEDS: Benzonatate 100 MG Cap PO PRN (18:22)
[2020-03-20] MEDS: Acetaminophen 325 MG Tab PO PRN (21:57)
[2020-03-21] MEDS: Benzonatate 100 MG Cap PO PRN (03:45)
[2020-03-21 06:47] LABS: BLOOD UREA NITROGEN,BUN 12 mg/dL (7.0-18.0); CARBON DIOXIDE,CO2 24.9 mmol/L (21.0-32.0); CHLORIDE,CL 102 mmol/L (98-107); GLUCOSE RANDOM 159 mg/dL (74-106); POTASSIUM,K 4.4 mmol/L (3.5-5.1); SODIUM,NA 136 mmol/L (136-145)
[2020-03-21] MEDS: Acetaminophen 325 MG Tab PO PRN (06:53)
[2020-03-21] MEDS: Insulin Aspart 100 Units/ML 3 ML Pen SUBCUT SCH ×2 (07:55→12:11)
[2020-03-21] MEDS: Pantoprazole 40 MG Tab.CR PO SCH (08:00)
[2020-03-21] MEDS ORDERED: Dexamethasone 4 MG Tab PO SCH (09:00)
[2020-03-21] MEDS ORDERED: Desvenlafaxine Succinate [Pristiq] 50 MG PO SCH (09:00)
--- NOTE | 2020-03-21 09:31 | PCM.PN ---
- General Info Date of Service: 03/21/20 Subjective Update: Reports shortness of breath and cough. Also complains of burning on urination. Tolerating oral diet and having bowel movements. - Patient Data Vitals - Most Recent: Last Vital Signs Temp 36.3 C 03/21/20 07:20 Pulse 69 03/21/20 07:20 Resp 20 03/21/20 07:20 BP 108/74 03/21/20 07:20 Pulse Ox 94 L 03/21/20 07:20 Weight - Most Recent: 84.4 kg I&O - Last 24 Hours: Intake & Output 03/20/20 03/21/20 03/21/20 22:59 06:59 14:59 Intake Total 850 Output Total 850 Balance 0 Lab Results Last 24 Hours: Laboratory Results - last 24 hr 03/20/20 03/20/20 03/20/20 Range/Units 10:45 10:45 10:45 WBC 5.32 (4.0-11.0) K/uL RBC 5.03 (4.30-5.90) M/uL Hgb 14.7 (12.0-16.0) g/dL Hct 43.6 (36.0-46.0) % MCV 86.7 (80.0-98.0) fL MCH 29.2 (27.0-32.0) pg MCHC 33.7 (31.0-37.0) g/dL RDW Std Deviation 43.0 (28.0-62.0) fl RDW Coeff of [place] 14 (11.0-15.0) % Plt Count 162 (150-400) K/uL MPV 10.50 (7.40-12.00) fL Neut % (Auto) 64.5 (48.0-80.0) % Lymph % (Auto) 22.0 (16.0-40.0) % Andrews % (Auto) 13.3 (0.0-15.0) % Eos % (Auto) 0.0 (0.0-7.0) % Baso % (Auto) 0.2 (0.0-1.5) % Neut # (Auto) 3.4 (1.4-5.7) K/uL Lymph # (Auto) 1.2 (0.6-2.4) K/uL Andrews # (Auto) 0.7 (0.0-0.8) K/uL Eos # (Auto) 0.0 (0.0-0.7) K/uL Baso # (Auto) 0.0 (0.0-0.1) K/uL Nucleated RBC % 0.0 /100WBC Nucleated RBCs # 0 K/uL D-Dimer, Quantitative 0.62 H (0.0-0.50) mg/L FEU Sodium 133 L (136-145) mmol/L Potassium 3.4 L (3.5-5.1) mmol/L Chloride 98 (98-107) mmol/L Carbon Dioxide 24.8 (21.0-32.0) mmol/L BUN 9 (7.0-18.0) mg/dL Creatinine 0.8 (0.6-1.0) mg/dL Est Cr Clr Drug Dosing 68.76 mL/min Estimated GFR (MDRD) > 60.0 ml/min Glucose 109 H (74-106) mg/dL POC Glucose (60-110) mg/dL Calcium 8.5 (8.5-10.1) mg/dL Phosphorus (2.6-4.7) mg/dL Magnesium (1.8-2.4) mg/dL Total Bilirubin 0.4 (0.2-1.0) mg/dL AST 34 (15-37) IU/L ALT 39 (14-63) IU/L Alkaline Phosphatase 64 (46-116) U/L Troponin I < 0.050 (0.000-0.056) ng/mL Total Protein 7.5 (6.4-8.2) g/dL Albumin 3.8 (3.4-5.0) g/dL Globulin 3.7 (2.6-4.0) g/dL Albumin/Globulin Ratio 1.0 (0.9-1.6) Urine Color Urine Appearance Urine pH (5.0-8.0) Ur Specific [place] (1.001-1.035) Urine Protein (NEGATIVE) mg/dL Urine Glucose (UA) (NEGATIVE) mg/dL Urine Ketones (NEGATIVE) mg/dL Urine Occult Blood (NEGATIVE) Urine Nitrite (NEGATIVE) Urine Bilirubin (NEGATIVE) Urine Urobilinogen (<2.0) EU/dL Ur Leukocyte Esterase (NEGATIVE) SARS CoV-2 RNA Rapid RICHARD (NEGATIVE) 03/20/20 03/20/20 03/20/20 Range/Units 10:45 10:45 17:35 WBC (4.0-11.0) K/uL RBC (4.30-5.90) M/uL Hgb (12.0-16.0) g/dL Hct (36.0-46.0) % MCV (80.0-98.0) fL MCH (27.0-32.0) pg MCHC (31.0-37.0) g/dL RDW Std Deviation (28.0-62.0) fl RDW Coeff of [place] (11.0-15.0) % Plt Count (150-400) K/uL MPV (7.40-12.00) fL Neut % (Auto) (48.0-80.0) % Lymph % (Auto) (16.0-40.0) % Andrews % (Auto) (0.0-15.0) % Eos % (Auto) (0.0-7.0) % Baso % (Auto) (0.0-1.5) % Neut # (Auto) (1.4-5.7) K/uL Lymph # (Auto) (0.6-2.4) K/uL Andrews # (Auto) (0.0-0.8) K/uL Eos # (Auto) (0.0-0.7) K/uL Baso # (Auto) (0.0-0.1) K/uL Nucleated RBC % /100WBC Nucleated RBCs # K/uL D-Dimer, Quantitative (0.0-0.50) mg/L FEU Sodium (136-145) mmol/L Potassium (3.5-5.1) mmol/L Chloride (98-107) mmol/L Carbon Dioxide (21.0-32.0) mmol/L BUN (7.0-18.0) mg/dL Creatinine (0.6-1.0) mg/dL Est Cr Clr Drug Dosing mL/min Estimated GFR (MDRD) ml/min Glucose (74-106) mg/dL POC Glucose 159 H (60-110) mg/dL Calcium (8.5-10.1) mg/dL Phosphorus 3.1 (2.6-4.7) mg/dL Magnesium 2.3 (1.8-2.4) mg/dL Total Bilirubin (0.2-1.0) mg/dL AST (15-37) IU/L ALT (14-63) IU/L Alkaline Phosphatase (46-116) U/L Troponin I (0.000-0.056) ng/mL Total Protein (6.4-8.2) g/dL Albumin (3.4-5.0) g/dL Globulin (2.6-4.0) g/dL Albumin/Globulin Ratio (0.9-1.6) Urine Color Urine Appearance Urine pH (5.0-8.0) Ur Specific [place] (1.001-1.035) Urine Protein (NEGATIVE) mg/dL Urine Glucose (UA) (NEGATIVE) mg/dL Urine Ketones (NEGATIVE) mg/dL Urine Occult Blood (NEGATIVE) Urine Nitrite (NEGATIVE) Urine Bilirubin (NEGATIVE) Urine Urobilinogen (<2.0) EU/dL Ur Leukocyte Esterase (NEGATIVE) SARS CoV-2 RNA Rapid RICHARD POSITIVE H (NEGATIVE) 03/21/20 03/21/20 03/21/20 Range/Units 06:03 06:03 06:52 WBC 3.12 L (4.0-11.0) K/uL RBC 4.77 (4.30-5.90) M/uL Hgb 13.7 (12.0-16.0) g/dL Hct 41.1 (36.0-46.0) % MCV 86.2 (80.0-98.0) fL MCH 28.7 (27.0-32.0) pg MCHC 33.3 (31.0-37.0) g/dL RDW Std Deviation 42.6 (28.0-62.0) fl RDW Coeff of [place] 13 (11.0-15.0) % Plt Count 166 (150-400) K/uL MPV 10.20 (7.40-12.00) fL Neut % (Auto) 51.9 (48.0-80.0) % Lymph % (Auto) 33.7 (16.0-40.0) % Andrews % (Auto) 14.1 (0.0-15.0) % Eos % (Auto) 0.0 (0.0-7.0) % Baso % (Auto) 0.3 (0.0-1.5) % Neut # (Auto) 1.6 (1.4-5.7) K/uL Lymph # (Auto) 1.1 (0.6-2.4) K/uL Andrews # (Auto) 0.4 (0.0-0.8) K/uL Eos # (Auto) 0.0 (0.0-0.7) K/uL Baso # (Auto) 0.0 (0.0-0.1) K/uL Nucleated RBC % 0.0 /100WBC Nucleated RBCs # 0 K/uL D-Dimer, Quantitative (0.0-0.50) mg/L FEU Sodium 136 (136-145) mmol/L Potassium 4.4 (3.5-5.1) mmol/L Chloride 102 (98-107) mmol/L Carbon Dioxide 24.9 (21.0-32.0) mmol/L BUN 12 (7.0-18.0) mg/dL Creatinine 0.7 (0.6-1.0) mg/dL Est Cr Clr Drug Dosing 78.58 mL/min Estimated GFR (MDRD) > 60.0 ml/min Glucose 159 H (74-106) mg/dL POC Glucose 159 H (60-110) mg/dL Calcium 8.5 (8.5-10.1) mg/dL Phosphorus (2.6-4.7) mg/dL Magnesium (1.8-2.4) mg/dL Total Bilirubin 0.3 (0.2-1.0) mg/dL AST 21 (15-37) IU/L ALT 39 (14-63) IU/L Alkaline Phosphatase 59 (46-116) U/L Troponin I (0.000-0.056) ng/mL Total Protein 7.2 (6.4-8.2) g/dL Albumin 3.5 (3.4-5.0) g/dL Globulin 3.7 (2.6-4.0) g/dL Albumin/Globulin Ratio 0.9 (0.9-1.6) Urine Color Urine Appearance Urine pH (5.0-8.0) Ur Specific [place] (1.001-1.035) Urine Protein (NEGATIVE) mg/dL Urine Glucose (UA) (NEGATIVE) mg/dL Urine Ketones (NEGATIVE) mg/dL Urine Occult Blood (NEGATIVE) Urine Nitrite (NEGATIVE) Urine Bilirubin (NEGATIVE) Urine Urobilinogen (<2.0) EU/dL Ur Leukocyte Esterase (NEGATIVE) SARS CoV-2 RNA Rapid RICHARD (NEGATIVE) 03/21/20 Range/Units 08:35 WBC (4.0-11.0) K/uL RBC (4.30-5.90) M/uL Hgb (12.0-16.0) g/dL Hct (36.0-46.0) % MCV (80.0-98.0) fL MCH (27.0-32.0) pg MCHC (31.0-37.0) g/dL RDW Std Deviation (28.0-62.0) fl RDW Coeff of [place] (11.0-15.0) % Plt Count (150-400) K/uL MPV (7.40-12.00) fL Neut % (Auto) (48.0-80.0) % Lymph % (Auto) (16.0-40.0) % Andrews % (Auto) (0.0-15.0) % Eos % (Auto) (0.0-7.0) % Baso % (Auto) (0.0-1.5) % Neut # (Auto) (1.4-5.7) K/uL Lymph # (Auto) (0.6-2.4) K/uL Andrews # (Auto) (0.0-0.8) K/uL Eos # (Auto) (0.0-0.7) K/uL Baso # (Auto) (0.0-0.1) K/uL Nucleated RBC % /100WBC Nucleated RBCs # K/uL D-Dimer, Quantitative (0.0-0.50) mg/L FEU Sodium (136-145) mmol/L Potassium (3.5-5.1) mmol/L Chloride (98-107) mmol/L Carbon Dioxide (21.0-32.0) mmol/L BUN (7.0-18.0) mg/dL Creatinine (0.6-1.0) mg/dL Est Cr Clr Drug Dosing mL/min Estimated GFR (MDRD) ml/min Glucose (74-106) mg/dL POC Glucose (60-110) mg/dL Calcium (8.5-10.1) mg/dL Phosphorus (2.6-4.7) mg/dL Magnesium (1.8-2.4) mg/dL Total Bilirubin (0.2-1.0) mg/dL AST (15-37) IU/L ALT (14-63) IU/L Alkaline Phosphatase (46-116) U/L Troponin I (0.000-0.056) ng/mL Total Protein (6.4-8.2) g/dL Albumin (3.4-5.0) g/dL Globulin (2.6-4.0) g/dL Albumin/Globulin Ratio (0.9-1.6) Urine Color YELLOW Urine Appearance CLEAR Urine pH 6.0 (5.0-8.0) Ur Specific [place] 1.020 (1.001-1.035) Urine Protein NEGATIVE (NEGATIVE) mg/dL Urine Glucose (UA) NEGATIVE (NEGATIVE) mg/dL Urine Ketones 40 H (NEGATIVE) mg/dL Urine Occult Blood NEGATIVE (NEGATIVE) Urine Nitrite NEGATIVE (NEGATIVE) Urine Bilirubin NEGATIVE (NEGATIVE) Urine Urobilinogen 0.2 (<2.0) EU/dL Ur Leukocyte Esterase NEGATIVE (NEGATIVE) SARS CoV-2 RNA Rapid RICHARD (NEGATIVE) Med Orders - Current: Current Medications Acetaminophen (Tylenol) 650 mg PO Q4H PRN PRN Reason: Pain (Mild 1-3)/fever Last Admin: 03/21/20 06:53 Dose: 650 mg Documented by: Albuterol/Ipratropium (Combivent Respimat) 0 gm INH Q6H PRN PRN Reason: Dyspnea Last Admin: 03/21/20 09:16 Dose: 1 puff Documented by: Azithromycin (Zithromax) 500 mg PO Q24H [facility] Benzonatate (Tessalon Perles) 100 mg PO TID PRN PRN Reason: Cough Last Admin: 03/21/20 03:45 Dose: 100 mg Documented by: Dextrose/Water (Dextrose 50% In Water) 50 ml IV ASDIRECTED PRN PRN Reason: Hypoglycemia Enoxaparin Sodium (Lovenox) 40 mg SUBCUT Q24H KURT Last Admin: 03/20/20 17:30 Dose: 40 mg Documented by: Glucagon (Glucagen) 1 mg IM ASDIRECTED PRN PRN Reason: Hypoglycemia Ceftriaxone Sodium/Dextrose 1 (gm/ Premix) 50 mls @ 100 mls/hr IV Q24H [facility] Insulin Aspart (Novolog) 0 unit SUBCUT TIDAC [facility]; Protocol Last Admin: 03/21/20 07:55 Dose: 1 unit Documented by: Ondansetron HCl (Zofran) 4 mg IVPUSH Q4H PRN PRN Reason: Nausea Pantoprazole Sodium (Protonix) 40 mg PO DAILY [facility] Last Admin: 03/21/20 08:00 Dose: 40 mg Documented by: Desvenlafaxine Succinate [Pristiq] 50 Mg 1 each PO DAILY [facility] Discontinued Medications Azithromycin (Zithromax) 500 mg PO NOW STA Stop: 03/20/20 13:43 Last Admin: 03/20/20 14:14 Dose: 500 mg Documented by: Dexamethasone (Dexamethasone) 8 mg PO ONETIME ONE Stop: 03/20/20 10:10 Last Admin: 03/20/20 10:37 Dose: 8 mg Documented by: Dexamethasone (Dexamethasone) 6 mg PO DAILY [facility] Sodium Chloride (Normal Saline) 1,000 mls @ 999 mls/hr IV .Bolus ONE Stop: 03/20/20 11:09 Last Admin: 03/20/20 10:47 Dose: 999 mls/hr Documented by: Ceftriaxone Sodium/Dextrose 1 (gm/ Premix) 50 mls @ 100 mls/hr IV ONETIME ONE Stop: 03/20/20 14:11 Last Admin: 03/20/20 14:14 Dose: 100 mls/hr Documented by: Remdesivir 100 mg/ Sodium (Chloride) 100 mls @ 100 mls/hr IV Q24H [facility] Stop: 03/24/20 17:59 Remdesivir 200 mg/ Sodium (Chloride) 250 mls @ 250 mls/hr IV ONETIME ONE Stop: 03/20/20 18:19 Last Admin: 03/20/20 17:56 Dose: Not Given Documented by: Influenza Virus Vaccine (Fluzone Quad [id number] Syringe) 60 mcg IM .ONCE ONE Stop: 03/20/20 17:31 Iopamidol (Isovue Multipack-370 (76%)) 100 ml IVPUSH ONETIME ONE Stop: 03/20/20 13:18 Last Admin: 03/20/20 13:17 Dose: 100 ml Documented by: Ketorolac Tromethamine (Toradol) 30 mg IVPUSH ONETIME ONE Stop: 03/20/20 14:10 Last Admin: 03/20/20 14:16 Dose: 30 mg Documented by: Ketorolac Tromethamine (Toradol) Confirm Administered Dose 30 mg .ROUTE .STK-MED ONE Stop: 03/20/20 14:11 Last Admin: 03/20/20 14:19 Dose: Not Given Documented by: Potassium Chloride (Klor-Con M20) 40 meq PO ONETIME ONE Stop: 03/20/20 14:45 Last Admin: 03/20/20 17:30 Dose: 40 meq Documented by: Potassium Chloride (Klor-Con M20) Confirm Administered Dose 40 meq .ROUTE .STK- MED ONE Stop: 03/20/20 17:25 Last Admin: 03/20/20 17:55 Dose: Not Given Documented by: - Exam General: Alert, Oriented, Cooperative, No Acute Distress Lungs: Clear to Auscultation, Normal Respiratory Effort Cardiovascular: Regular Rate, Regular Rhythm GI/Abdominal Exam: Normal Bowel Sounds, Soft, Non-Tender, No Distention Extremities: Normal Inspection, No Pedal Edema Sepsis Event Note - Evaluation Sepsis Screening Result: No Definite Risk - Focused Exam Vital Signs: Vital Signs Temp Pulse Resp BP Pulse Ox 03/21/20 07:20 36.3 C 69 20 108/74 94 L 03/21/20 03:47 35.7 C L 59 L 18 116/72 95 03/21/20 00:09 36.1 C 60 17 102/63 94 L 03/20/20 21:56 62 18 95 - Problem List & Annotations (1) Pneumonia due to COVID-19 virus SNOMED Code(s): 607002054553221350 Code(s): U07.1 - COVID-19; J12.89 - OTHER VIRAL PNEUMONIA Status: Acute Current Visit: Yes (2) Hypokalemia SNOMED Code(s): 89172285 Code(s): E87.6 - HYPOKALEMIA Status: Acute Current Visit: Yes (3) Diabetes mellitus SNOMED Code(s): 26404670 Code(s): E11.9 - TYPE 2 DIABETES MELLITUS WITHOUT COMPLICATIONS Status: Acute Current Visit: Yes (4) Depression SNOMED Code(s): 16972346 Code(s): F32.9 - MAJOR DEPRESSIVE DISORDER, SINGLE EPISODE, UNSPECIFIED Status: Acute Current Visit: Yes (5) Anxiety SNOMED Code(s): 41147714 Code(s): F41.9 - ANXIETY DISORDER, UNSPECIFIED Status: Acute Current Visit: No - Problem List Review Problem List Initiated/Reviewed/Updated: Yes - My Orders Last 24 Hours: My Active Orders 03/20/20 Lunch [employer] Diet [DIET] 03/20/20 12:00 Albuterol/Ipratropium [Combivent Respimat] See Dose Instructions INH Q6H PRN 03/20/20 14:40 Oxygen Therapy [RC] PRN Up ad Landy [RC] ASDIRECTED VTE/DVT Education [RC] PER UNIT ROUTINE Vital Signs [RC] Q4H Acetaminophen [TylenoL] 650 mg PO Q4H PRN Ondansetron [Zofran] 4 mg IVPUSH Q4H PRN Resuscitation Status Routine 03/20/20 14:42 RT Incentive Spirometry [RC] ASDIRECTED RT Post Treatment Assessment [RC] Click to Edit RT Pre-Treatment Assessment [RC] Click to Edit 03/20/20 14:44 Blood Glucose Check, Bedside [RC] TIDAC Dextrose 50% in Water 50 ml IV ASDIRECTED PRN Glucagon,Human Recombinant [GlucaGen] 1 mg IM ASDIRECTED PRN 03/20/20 14:45 Enoxaparin [Lovenox] 40 mg SUBCUT Q24H Pantoprazole [ProTONIX] 40 mg PO DAILY 03/20/20 14:48 Benzonatate [Tessalon Perles] 100 mg PO TID PRN 03/20/20 14:51 Telemetry Monitoring [Cardiac Monitoring] [RC] . DIRECTED 03/20/20 17:00 Insulin Aspart [NovoLOG] See Protocol SUBCUT TIDAC 03/21/20 09:00 Patient's Own Medication [Ptom] 1 each PO DAILY 03/21/20 17:00 Azithromycin [Zithromax] 500 mg PO Q24H cefTRIAXone [Rocephin in Dextrose,Iso-Osm 1 GM/50 ML] 1 gm Premix Bag 1 bag IV Q24H - Plan Plan:: Assessment and Plan: 1. COVID-19 pneumonia: - Supplemental oxygen PRN to maintain O2 sat > 94%, combivent q6h PRN, Rocephin and azithromycin. Continue to encourage incentive spirometer use. Will consider starting Remdesivir and dexamethasone if O2 sat drops below 94%. - CT chest angio: negative for PE, bilateral ground-glass opacities. - CXR: unremarkable. 2. Hypokalemia, resolved. 3. Diabetes mellitus type II: - ADA Diet. Novolog SSI. Accuchecks TIDAC. 4. DVT prophylaxis: - Lovenox 40 mg subcut qd. 5. Past medical history of anxiety and depression: - Resume home medications.
--- NOTE | 2020-03-21 11:33 | PCM.DCSUM1 ---
<Héctor Catalan - Last Filed: 03/21/20 11:48> Discharge Summary - Hospital Course Free Text/Narrative:: 49-year-old female admitted for COVID-19 pneumonia. She has a PMH of DM type II, anxiety and depression. CXR was unremarkable. CT chest angio was negative for PE but showed bilateral ground glass opacities. Troponin was negative. Patient was started on Combivent, Rocephin and azithromycin. As her oxygen saturation remained > 94%, she was not started on Remdesivir or dexamethasone. Patient remained with normal oxygen saturation overnight and felt well enough to go home the following day. She was discharged in stable condition with scripts for Combivent prn, Tessalon pearles, cefdinir and azithromycin. Advised to get home pulse oximeter to monitor her oxygen levels at home and return to hospital if < 92%. Advised to continue self-quarantine. - Discharge Data Discharge Date: 03/21/20 Discharge Disposition: Home, Self-Care 01 Condition: Stable - Referral to Home Health Primary Care Physician: Shi Vigil NP - Discharge Diagnosis/Problem(s) (1) Pneumonia due to COVID-19 virus SNOMED Code(s): 379755895418091628 ICD Code: U07.1 - COVID-19; J12.89 - OTHER VIRAL PNEUMONIA Status: Acute (2) Hypokalemia SNOMED Code(s): 84774205 ICD Code: E87.6 - HYPOKALEMIA Status: Acute (3) Diabetes mellitus SNOMED Code(s): 07038136 ICD Code: E11.9 - TYPE 2 DIABETES MELLITUS WITHOUT COMPLICATIONS Status: Acute (4) Depression SNOMED Code(s): 49933794 ICD Code: F32.9 - MAJOR DEPRESSIVE DISORDER, SINGLE EPISODE, UNSPECIFIED Status: Acute (5) Anxiety SNOMED Code(s): 16847320 ICD Code: F41.9 - ANXIETY DISORDER, UNSPECIFIED Status: Acute - Patient Instructions Diet: Diabetic Diet Activity: As Tolerated Notify Provider of: Fever, Increased Pain, Swelling and Redness, Drainage, Nausea and/or Vomiting Other/Special Instructions: worsening shortness of breath or chest pain - Discharge Plan *PRESCRIPTION DRUG MONITORING PROGRAM REVIEWED*: Not Applicable *COPY OF PRESCRIPTION DRUG MONITORING REPORT IN PATIENT JOSE: Not Applicable Prescriptions/Med Rec: Cefdinir 300 mg PO BID 4 Days #8 capsule Albuterol/Ipratropium [Combivent Respimat] 4 gm IH Q6HR PRN #1 inhaler PRN Reason: Dyspnea Benzonatate [Tessalon Perle] 100 mg PO BID PRN 4 Days #8 capsule PRN Reason: Cough Azithromycin [Zithromax] 500 mg PO Q24H 4 Days #4 tablet Home Medications: Home Meds Desvenlafaxine Succinate [Pristiq] 50 mg PO DAILY 03/20/20 [History] metFORMIN [Glucophage] 1,000 mg PO DAILY 03/20/20 [History] Albuterol/Ipratropium [Combivent Respimat] 4 gm IH Q6HR PRN #1 inhaler 03/21/20 [Rx] Azithromycin [Zithromax] 500 mg PO Q24H 4 Days #4 tablet 03/21/20 [Rx] Benzonatate [Tessalon Perle] 100 mg PO BID PRN 4 Days #8 capsule 03/21/20 [Rx] Cefdinir 300 mg PO BID 4 Days #8 capsule 03/21/20 [Rx] Oxygen Therapy Mode: Room Air Patient Handouts: Albuterol; Ipratropium respiratory inhalation spray (Combivent Respimat), COVID-19, Cefdinir capsules, Azithromycin tablets, Infection Prevention in the Home, Benzonatate capsules, Community-Acquired Pneumonia, Adult, [id number] Referrals: Shi Vigil, [employer] DIRECTOR [Primary Care Provider] - - Discharge Summary/Plan Comment DC Time >30 min.: No - Patient Data Vitals - Most Recent: Last Vital Signs Temp 36.5 C 03/21/20 11:00 Pulse 79 03/21/20 11:00 Resp 16 03/21/20 11:00 BP 124/73 03/21/20 11:00 Pulse Ox 95 03/21/20 11:00 Weight - Most Recent: 84.4 kg I&O - Last 24 hours: Intake & Output 03/20/20 03/21/20 03/21/20 22:59 06:59 14:59 Intake Total 850 Output Total 850 Balance 0 Lab Results - Last 24 hrs: Laboratory Results - last 24 hr 03/20/20 03/20/20 03/21/20 Range/Units 10:45 17:35 06:03 WBC 3.12 L (4.0-11.0) K/uL RBC 4.77 (4.30-5.90) M/uL Hgb 13.7 (12.0-16.0) g/dL Hct 41.1 (36.0-46.0) % MCV 86.2 (80.0-98.0) fL MCH 28.7 (27.0-32.0) pg MCHC 33.3 (31.0-37.0) g/dL RDW Std Deviation 42.6 (28.0-62.0) fl RDW Coeff of Eugene 13 (11.0-15.0) % Plt Count 166 (150-400) K/uL MPV 10.20 (7.40-12.00) fL Neut % (Auto) 51.9 (48.0-80.0) % Lymph % (Auto) 33.7 (16.0-40.0) % Bailey % (Auto) 14.1 (0.0-15.0) % Eos % (Auto) 0.0 (0.0-7.0) % Baso % (Auto) 0.3 (0.0-1.5) % Neut # (Auto) 1.6 (1.4-5.7) K/uL Lymph # (Auto) 1.1 (0.6-2.4) K/uL Bailey # (Auto) 0.4 (0.0-0.8) K/uL Eos # (Auto) 0.0 (0.0-0.7) K/uL Baso # (Auto) 0.0 (0.0-0.1) K/uL Nucleated RBC % 0.0 /100WBC Nucleated RBCs # 0 K/uL Sodium (136-145) mmol/L Potassium (3.5-5.1) mmol/L Chloride (98-107) mmol/L Carbon Dioxide (21.0-32.0) mmol/L BUN (7.0-18.0) mg/dL Creatinine (0.6-1.0) mg/dL Est Cr Clr Drug Dosing mL/min Estimated GFR (MDRD) ml/min Glucose (74-106) mg/dL POC Glucose 159 H (60-110) mg/dL Calcium (8.5-10.1) mg/dL Phosphorus 3.1 (2.6-4.7) mg/dL Magnesium 2.3 (1.8-2.4) mg/dL Total Bilirubin (0.2-1.0) mg/dL AST (15-37) IU/L ALT (14-63) IU/L Alkaline Phosphatase (46-116) U/L Total Protein (6.4-8.2) g/dL Albumin (3.4-5.0) g/dL Globulin (2.6-4.0) g/dL Albumin/Globulin Ratio (0.9-1.6) Urine Color Urine Appearance Urine pH (5.0-8.0) Ur Specific [place] (1.001-1.035) Urine Protein (NEGATIVE) mg/dL Urine Glucose (UA) (NEGATIVE) mg/dL Urine Ketones (NEGATIVE) mg/dL Urine Occult Blood (NEGATIVE) Urine Nitrite (NEGATIVE) Urine Bilirubin (NEGATIVE) Urine Urobilinogen (<2.0) EU/dL Ur Leukocyte Esterase (NEGATIVE) 03/21/20 03/21/20 03/21/20 Range/Units 06:03 06:52 08:35 WBC (4.0-11.0) K/uL RBC (4.30-5.90) M/uL Hgb (12.0-16.0) g/dL Hct (36.0-46.0) % MCV (80.0-98.0) fL MCH (27.0-32.0) pg MCHC (31.0-37.0) g/dL RDW Std Deviation (28.0-62.0) fl RDW Coeff of Eugene (11.0-15.0) % Plt Count (150-400) K/uL MPV (7.40-12.00) fL Neut % (Auto) (48.0-80.0) % Lymph % (Auto) (16.0-40.0) % Bailey % (Auto) (0.0-15.0) % Eos % (Auto) (0.0-7.0) % Baso % (Auto) (0.0-1.5) % Neut # (Auto) (1.4-5.7) K/uL Lymph # (Auto) (0.6-2.4) K/uL Bailey # (Auto) (0.0-0.8) K/uL Eos # (Auto) (0.0-0.7) K/uL Baso # (Auto) (0.0-0.1) K/uL Nucleated RBC % /100WBC Nucleated RBCs # K/uL Sodium 136 (136-145) mmol/L Potassium 4.4 (3.5-5.1) mmol/L Chloride 102 (98-107) mmol/L Carbon Dioxide 24.9 (21.0-32.0) mmol/L BUN 12 (7.0-18.0) mg/dL Creatinine 0.7 (0.6-1.0) mg/dL Est Cr Clr Drug Dosing 78.58 mL/min Estimated GFR (MDRD) > 60.0 ml/min Glucose 159 H (74-106) mg/dL POC Glucose 159 H (60-110) mg/dL Calcium 8.5 (8.5-10.1) mg/dL Phosphorus (2.6-4.7) mg/dL Magnesium (1.8-2.4) mg/dL Total Bilirubin 0.3 (0.2-1.0) mg/dL AST 21 (15-37) IU/L ALT 39 (14-63) IU/L Alkaline Phosphatase 59 (46-116) U/L Total Protein 7.2 (6.4-8.2) g/dL Albumin 3.5 (3.4-5.0) g/dL Globulin 3.7 (2.6-4.0) g/dL Albumin/Globulin Ratio 0.9 (0.9-1.6) Urine Color YELLOW Urine Appearance CLEAR Urine pH 6.0 (5.0-8.0) Ur Specific [place] 1.020 (1.001-1.035) Urine Protein NEGATIVE (NEGATIVE) mg/dL Urine Glucose (UA) NEGATIVE (NEGATIVE) mg/dL Urine Ketones 40 H (NEGATIVE) mg/dL Urine Occult Blood NEGATIVE (NEGATIVE) Urine Nitrite NEGATIVE (NEGATIVE) Urine Bilirubin NEGATIVE (NEGATIVE) Urine Urobilinogen 0.2 (<2.0) EU/dL Ur Leukocyte Esterase NEGATIVE (NEGATIVE) Med Orders - Current: Current Medications Acetaminophen (Tylenol) 650 mg PO Q4H PRN PRN Reason: Pain (Mild 1-3)/fever Last Admin: 03/21/20 06:53 Dose: 650 mg Documented by: Albuterol/Ipratropium (Combivent Respimat) 0 gm INH Q6H PRN PRN Reason: Dyspnea Last Admin: 03/21/20 09:16 Dose: 1 puff Documented by: Azithromycin (Zithromax) 500 mg PO Q24H [facility] Benzonatate (Tessalon Perles) 100 mg PO TID PRN PRN Reason: Cough Last Admin: 03/21/20 03:45 Dose: 100 mg Documented by: Dextrose/Water (Dextrose 50% In Water) 50 ml IV ASDIRECTED PRN PRN Reason: Hypoglycemia Enoxaparin Sodium (Lovenox) 40 mg SUBCUT Q24H [facility] Last Admin: 03/20/20 17:30 Dose: 40 mg Documented by: Glucagon (Glucagen) 1 mg IM ASDIRECTED PRN PRN Reason: Hypoglycemia Ceftriaxone Sodium/Dextrose 1 (gm/ Premix) 50 mls @ 100 mls/hr IV Q24H [facility] Insulin Aspart (Novolog) 0 unit SUBCUT TIDAC [facility]; Protocol Last Admin: 03/21/20 07:55 Dose: 1 unit Documented by: Ondansetron HCl (Zofran) 4 mg IVPUSH Q4H PRN PRN Reason: Nausea Pantoprazole Sodium (Protonix) 40 mg PO DAILY [facility] Last Admin: 03/21/20 08:00 Dose: 40 mg Documented by: Desvenlafaxine Succinate [Pristiq] 50 Mg 1 each PO DAILY [facility] Discontinued Medications Azithromycin (Zithromax) 500 mg PO NOW STA Stop: 03/20/20 13:43 Last Admin: 03/20/20 14:14 Dose: 500 mg Documented by: Dexamethasone (Dexamethasone) 8 mg PO ONETIME ONE Stop: 03/20/20 10:10 Last Admin: 03/20/20 10:37 Dose: 8 mg Documented by: Dexamethasone (Dexamethasone) 6 mg PO DAILY [facility] Sodium Chloride (Normal Saline) 1,000 mls @ 999 mls/hr IV .Bolus ONE Stop: 03/20/20 11:09 Last Admin: 03/20/20 10:47 Dose: 999 mls/hr Documented by: Ceftriaxone Sodium/Dextrose 1 (gm/ Premix) 50 mls @ 100 mls/hr IV ONETIME ONE Stop: 03/20/20 14:11 Last Admin: 03/20/20 14:14 Dose: 100 mls/hr Documented by: Remdesivir 100 mg/ Sodium (Chloride) 100 mls @ 100 mls/hr IV Q24H [facility] Stop: 03/24/20 17:59 Remdesivir 200 mg/ Sodium (Chloride) 250 mls @ 250 mls/hr IV ONETIME ONE Stop: 03/20/20 18:19 Last Admin: 03/20/20 17:56 Dose: Not Given Documented by: Influenza Virus Vaccine (Fluzone Quad [id number] Syringe) 60 mcg IM .ONCE ONE Stop: 03/20/20 17:31 Iopamidol (Isovue Multipack-370 (76%)) 100 ml IVPUSH ONETIME ONE Stop: 03/20/20 13:18 Last Admin: 03/20/20 13:17 Dose: 100 ml Documented by: Ketorolac Tromethamine (Toradol) 30 mg IVPUSH ONETIME ONE Stop: 03/20/20 14:10 Last Admin: 03/20/20 14:16 Dose: 30 mg Documented by: Ketorolac Tromethamine (Toradol) Confirm Administered Dose 30 mg .ROUTE .STK-MED ONE Stop: 03/20/20 14:11 Last Admin: 03/20/20 14:19 Dose: Not Given Documented by: Potassium Chloride (Klor-Con M20) 40 meq PO ONETIME ONE Stop: 03/20/20 14:45 Last Admin: 03/20/20 17:30 Dose: 40 meq Documented by: Potassium Chloride (Klor-Con M20) Confirm Administered Dose 40 meq .ROUTE .STK- MED ONE Stop: 03/20/20 17:25 Last Admin: 03/20/20 17:55 Dose: Not Given Documented by: <Eitan Peters - Last Filed: 03/22/20 19:05> Discharge Summary - Referral to Home Health Primary Care Physician: Shi Vigil NP - Patient Data Vitals - Most Recent: Last Vital Signs Temp 36.5 C 03/21/20 11:00 Pulse 79 03/21/20 11:00 Resp 16 03/21/20 11:00 BP 124/73 03/21/20 11:00 Pulse Ox 95 03/21/20 11:00 Lab Results - Last 24 hrs: Laboratory Results - last 24 hr 03/20/20 Range/Units 10:45 SARS-CoV-2 (PCR) DETECTED H (NOT DETECT) Med Orders - Current: Current Medications Discontinued Medications Acetaminophen (Tylenol) 650 mg PO Q4H PRN PRN Reason: Pain (Mild 1-3)/fever Last Admin: 03/21/20 06:53 Dose: 650 mg Documented by: Albuterol/Ipratropium (Combivent Respimat) 0 gm INH Q6H PRN PRN Reason: Dyspnea Last Admin: 03/21/20 09:16 Dose: 1 puff Documented by: Azithromycin (Zithromax) 500 mg PO NOW STA Stop: 03/20/20 13:43 Last Admin: 03/20/20 14:14 Dose: 500 mg Documented by: Azithromycin (Zithromax) 500 mg PO Q24H [facility] Benzonatate (Tessalon Perles) 100 mg PO TID PRN PRN Reason: Cough Last Admin: 03/21/20 03:45 Dose: 100 mg Documented by: Dexamethasone (Dexamethasone) 8 mg PO ONETIME ONE Stop: 03/20/20 10:10 Last Admin: 03/20/20 10:37 Dose: 8 mg Documented by: Dexamethasone (Dexamethasone) 6 mg PO DAILY [facility] Dextrose/Water (Dextrose 50% In Water) 50 ml IV ASDIRECTED PRN PRN Reason: Hypoglycemia Enoxaparin Sodium (Lovenox) 40 mg SUBCUT Q24H [facility] Last Admin: 03/20/20 17:30 Dose: 40 mg Documented by: Glucagon (Glucagen) 1 mg IM ASDIRECTED PRN PRN Reason: Hypoglycemia Sodium Chloride (Normal Saline) 1,000 mls @ 999 mls/hr IV .Bolus ONE Stop: 03/20/20 11:09 Last Admin: 03/20/20 10:47 Dose: 999 mls/hr Documented by: Ceftriaxone Sodium/Dextrose 1 (gm/ Premix) 50 mls @ 100 mls/hr IV ONETIME ONE Stop: 03/20/20 14:11 Last Admin: 03/20/20 14:14 Dose: 100 mls/hr Documented by: Ceftriaxone Sodium/Dextrose 1 (gm/ Premix) 50 mls @ 100 mls/hr IV Q24H [facility] Remdesivir 100 mg/ Sodium (Chloride) 100 mls @ 100 mls/hr IV Q24H [facility] Stop: 03/24/20 17:59 Remdesivir 200 mg/ Sodium (Chloride) 250 mls @ 250 mls/hr IV ONETIME ONE Stop: 03/20/20 18:19 Last Admin: 03/20/20 17:56 Dose: Not Given Documented by: Influenza Virus Vaccine (Fluzone Quad [id number] Syringe) 60 mcg IM .ONCE ONE Stop: 03/20/20 17:31 Last Admin: 03/21/20 11:55 Dose: 60 mcg Documented by: Insulin Aspart (Novolog) 0 unit SUBCUT TIDAC [facility]; Protocol Last Admin: 03/21/20 12:11 Dose: Not Given Documented by: Iopamidol (Isovue Multipack-370 (76%)) 100 ml IVPUSH ONETIME ONE Stop: 03/20/20 13:18 Last Admin: 03/20/20 13:17 Dose: 100 ml Documented by: Ketorolac Tromethamine (Toradol) 30 mg IVPUSH ONETIME ONE Stop: 03/20/20 14:10 Last Admin: 03/20/20 14:16 Dose: 30 mg Documented by: Ketorolac Tromethamine (Toradol) Confirm Administered Dose 30 mg .ROUTE .STK-MED ONE Stop: 03/20/20 14:11 Last Admin: 03/20/20 14:19 Dose: Not Given Documented by: Ondansetron HCl (Zofran) 4 mg IVPUSH Q4H PRN PRN Reason: Nausea Pantoprazole Sodium (Protonix) 40 mg PO DAILY [facility] Last Admin: 03/21/20 08:00 Dose: 40 mg Documented by: Desvenlafaxine Succinate [Pristiq] 50 Mg 1 each PO DAILY [facility] Last Admin: 03/21/20 12:16 Dose: Not Given Documented by: Potassium Chloride (Klor-Con M20) 40 meq PO ONETIME ONE Stop: 03/20/20 14:45 Last Admin: 03/20/20 17:30 Dose: 40 meq Documented by: Potassium Chloride (Klor-Con M20) Confirm Administered Dose 40 meq .ROUTE .STK- MED ONE Stop: 03/20/20 17:25 Last Admin: 03/20/20 17:55 Dose: Not Given Documented by: - Free Text/Narrative Note: I have seen and evaluated the patient. I have discussed findings and treatment plan with resident. I agree with the assessment and plan in the following note.
[2020-03-21] MEDS ORDERED: Azithromycin 250 MG Tab PO SCH (17:00)
[2020-03-21] MEDS ORDERED: REMDESIVIR 100 MG in Sodium Chloride 0.9% 100 ML IV SCH (17:00)
[2020-03-21] MEDS ORDERED: cefTRIAXone 1 GM in Premix Bag 1 BAG IV SCH (17:00)
== END 2020-03-21 13:45 | disposition home or self-care (01) ==
LOC: MW.ED 09:17 → MW.MS 13:40
PROVIDERS: ADMIT Internal Medicine; ATTEND Internal Medicine
DX: U07.1 COVID-19 (principal); J12.89 Other viral pneumonia; E87.6 Hypokalemia; E11.9 Type 2 diabetes mellitus without complications; F41.9 Anxiety disorder, unspecified; F32.9 Major depressive disorder, single episode, unspecified; F17.210 Nicotine dependence, cigarettes, uncomplicated; Z98.890 Other specified postprocedural states; Z79.899 Other long term (current) drug therapy; Z88.8 Allergy status to other drugs, medicaments and biological substances; Z88.5 Allergy status to narcotic agent; Z91.048 Other nonmedicinal substance allergy status; Z79.84 Long term (current) use of oral hypoglycemic drugs
CPT/HCPCS: 36415; 71045; 71275; 80053; 81003; 82962; 83735; 84100; 84484; 85025; 85379; 87635; 90471; 90686; 93005; 96365; 96372; 96375; 99285; A9270; G0378; J0696; J1650; J1815; J1885; J7030; J8540; Q9967; 93010; 99217; 99218; 99284; G0008; U0002

== ENCOUNTER 2021-11-27 02:09 | Emergency (ER) | payer SELFPAY | END 2021-11-27 02:25 | LOC: MW.ED 02:09 | DX: Z02.79 Encounter for issue of other medical certificate (principal); E11.9 Type 2 diabetes mellitus without complications; Z91.048 Other nonmedicinal substance allergy status; Z88.5 Allergy status to narcotic agent; Z88.1 Allergy status to other antibiotic agents; Z79.84 Long term (current) use of oral hypoglycemic drugs | CPT/HCPCS: 82947; 99282; 99283 ==

== ENCOUNTER 2021-12-12 16:13 | Emergency (ER) | payer SELFPAY ==
[2021-12-12] MEDS ORDERED: Sodium Chloride 0.9% 1,000 ML IV SCH (16:30)
[2021-12-12] MEDS: Metoprolol Tartrate 5 MG/5 ML SDV IVPUSH ONE ×2 (16:45→16:57)
[2021-12-12 16:46] LABS: CARBON DIOXIDE,CO2 26.4 mmol/L (21.0-32.0); POTASSIUM,K 3.7 mmol/L (3.5-5.1)
[2021-12-12] MEDS ORDERED: Cephalexin 500 MG Cap PO STA (17:29)
== END 2021-12-12 17:47 | disposition home or self-care (01) ==
LOC: MW.ED 16:13
DX: U07.1 COVID-19 (principal); J40 Bronchitis, not specified as acute or chronic; N39.0 Urinary tract infection, site not specified; E11.9 Type 2 diabetes mellitus without complications; Z91.048 Other nonmedicinal substance allergy status; Z88.5 Allergy status to narcotic agent; Z88.1 Allergy status to other antibiotic agents; Z79.84 Long term (current) use of oral hypoglycemic drugs; Z20.822 Contact with and (suspected) exposure to COVID-19
CPT/HCPCS: 36415; 71045; 80053; 81001; 84484; 85025; 85379; 87635; 87651; 93005; 96360; 99283; A9270; J7030; J3490; U0002

== ENCOUNTER 2025-02-25 16:36 | Emergency (ER) | payer SELFPAY ==
[2025-02-25] MEDS: Ondansetron 4 MG/2 ML SDV IVPUSH ONE (17:13)
[2025-02-25] MEDS: Ketorolac 30 MG/ML SDV IVPUSH ONE (18:02)
== END 2025-02-25 18:49 | disposition home or self-care (01) ==
LOC: MW.ED 16:36
DX: S22.41XA Multiple fractures of ribs, right side, initial encounter for closed fracture (principal); E11.9 Type 2 diabetes mellitus without complications; Z79.899 Other long term (current) drug therapy; Z88.8 Allergy status to other drugs, medicaments and biological substances; Z91.048 Other nonmedicinal substance allergy status; Z90.49 Acquired absence of other specified parts of digestive tract; Z90.710 Acquired absence of both cervix and uterus; X50.1XXA Overexertion from prolonged static or awkward postures, initial encounter
CPT/HCPCS: 71250; 93005; 96374; 96375; 99284; J1171; J1885; J2405; 93010

== ENCOUNTER 2025-03-18 13:02 | Emergency (ER) | payer SELFPAY ==
[2025-03-18] MEDS ORDERED: Sodium Chloride 0.9% 10 ML Syringe FLUSH PRN (13:07)
[2025-03-18] MEDS ORDERED: Sodium Chloride 0.9% 2.5 ML Syringe FLUSH PRN (13:07)
[2025-03-18] MEDS: methylPREDNISolone Sodium Succinate 125 MG/2 ML SDV IVPUSH ONE (13:34)
[2025-03-18] MEDS: Ketorolac 30 MG/ML SDV IVPUSH ONE (13:34)
[2025-03-18 13:51] LABS: BASOPHILS ABSOLUTE AUTO 0.04 K/uL (0.00-0.20); BASOPHILS PERCENT AUTO 0.4 % (0.0-1.0); EOSINOPHILS ABSOLUTE AUTO 0.23 K/uL (0.00-0.45); EOSINOPHILS PERCENT AUTO 2.0 % (0.0-6.0); IMMATURE GRAN ABSOLUTE AUTO 0.03 K/uL (0.00-0.05); IMMATURE GRAN PERCENT AUTO 0.3 % (0.0-0.4); LYMPHOCYTES ABSOLUTE AUTO 2.37 K/uL (1.00-4.80); LYMPHOCYTES PERCENT AUTO 20.8 % (24.0-44.0); MEAN PLATELET VOLUME 9.1 fL (9.4-12.3); MONOCYTES ABSOLUTE AUTO 0.98 K/uL (0.00-0.80); MONOCYTES PERCENT AUTO 8.6 % (0.0-8.0); NEUTROPHILS ABSOLUTE AUTO 7.73 K/uL (1.80-7.70); NEUTROPHILS PERCENT AUTO 67.9 % (41.0-71.0); NRBC ABSOLUTE 0.00 K/uL (0.00-0.02); NRBC PERCENT 0.0 /100WBC (0.0-0.2); PLATELET COUNT,PLT 332 K/uL (150-400); RED BLOOD CELL COUNT 5.08 M/uL (4.10-5.30); WHITE BLOOD CELL COUNT,WBC 11.38 K/uL (3.9-11.3)
[2025-03-18 14:20] LABS: A/G RATIO 1.2 (0.9-1.6); ALANINE AMINOTRANSFERASE,ALT 54 IU/L (14-63); ASPARTATE AMNIOTRANSFERASE,AST 20 IU/L (15-37); BILIRUBIN TOTAL 0.4 mg/dL (0.2-1.0); BLOOD UREA NITROGEN,BUN 10 mg/dL (7.0-18.0); CARBON DIOXIDE,CO2 28.8 mmol/L (21.0-32.0); CHLORIDE,CL 99 mmol/L (98-107); CREATININE 0.7 mg/dL (0.6-1.0); EST CRCL DRUG DOSING (CG) 74.35 mL/min; GLUCOSE RANDOM 109 mg/dL (74-106); POTASSIUM,K 3.6 mmol/L (3.5-5.1); PRO B-TYPE NATRIUR PEPT,BNPPRO 6 pg/mL (0-125); PROTEIN TOTAL,TP 7.8 g/dL (6.4-8.2); SODIUM,NA 138 mmol/L (136-145)
[2025-03-18 14:26] LABS: ESTIMATED GFR 104 mL/min (>60)
== END 2025-03-18 14:56 | disposition home or self-care (01) ==
LOC: MW.ED 13:02
DX: J20.9 Acute bronchitis, unspecified (principal); R09.1 Pleurisy; F17.290 Nicotine dependence, other tobacco product, uncomplicated; E11.9 Type 2 diabetes mellitus without complications; Z79.899 Other long term (current) drug therapy; Z88.1 Allergy status to other antibiotic agents; Z88.8 Allergy status to other drugs, medicaments and biological substances; Z90.49 Acquired absence of other specified parts of digestive tract; Z90.710 Acquired absence of both cervix and uterus
CPT/HCPCS: 36415; 71045; 80053; 83735; 83880; 84484; 85025; 85379; 87428; 93005; 96361; 96374; 96375; 99284; A9270; J1885; J2919; J7030; 93010